=== PATIENT | male | born 1950 | race Caucasian/White ===

== ENCOUNTER 2017-12-13 20:36 | Emergency (ER) | payer OTHER ==
[2017-12-13 21:23] LABS: BASO # 0.1 10^3/uL (0.0-0.2); BASO % 1.3 % (0.0-1.0); EOS # 0.1 10^3/uL (0.0-0.50); EOS % 1.8 % (0.0-3.0); HEMATOCRIT 42.1 % (42.0-52.0); HEMOGLOBIN 14.2 g/dl (13.5-17.5); IMMATURE GRANULOCYTE % 0.4 % (0-3.0); LYMPH # 2.1 10^3/uL (1.5-4.5); LYMPH % 26.6 % (24.0-44.0); MEAN CORPUSCULAR HGB CONC 33.7 g/dl (32.0-36.5); MEAN CORPUSCULAR VOLUME 86.1 fl (80.0-96.0); MONO # 0.9 10^3/uL (0.0-0.8); MONO % 11.2 % (0.0-5.0); NEUTROPHILS # 4.6 10^3/uL (1.8-7.7); NEUTROPHILS % 58.7 % (36.0-66.0); PLATELET COUNT, AUTOMATED 244 10^3/uL (150-450); RED BLOOD COUNT 4.89 10^6/uL (4.30-6.10); WHITE BLOOD COUNT 7.8 10^3/uL (4.0-10.0)
[2017-12-13 21:57] LABS: ALBUMIN 3.2 GM/DL (3.2-5.2); ALBUMIN/GLOBULIN RATIO 0.76 (1.00-1.93); ALKALINE PHOSPHATASE 64 U/L (45-117); ALT/SGPT 42 U/L (12-78); ANION GAP 10 MEQ/L (8-16); AST/SGOT 19 U/L (7-37); BILIRUBIN,DIRECT 0.1 MG/DL (0.0-0.2); BILIRUBIN,TOTAL 0.4 MG/DL (0.2-1.0); BLOOD UREA NITROGEN 12 MG/DL (7-18); CALCIUM LEVEL 8.7 MG/DL (8.8-10.2); CARBON DIOXIDE LEVEL 26 MEQ/L (21-32); CHLORIDE LEVEL 103 MEQ/L (98-107); CREATININE FOR GFR 1.07 MG/DL (0.70-1.30); GLOMERULAR FILTRATION RATE > 60.0 (>49); GLUCOSE, FASTING 264 MG/DL (70-100); POTASSIUM SERUM 3.9 MEQ/L (3.5-5.1); SODIUM LEVEL 139 MEQ/L (136-145); TOTAL PROTEIN 7.4 GM/DL (6.4-8.2)
[2017-12-13 22:08] LABS: INR 1.05; PROTHROMBIN TIME 13.8 SECONDS (12.1-14.4)
[2017-12-13 22:09] LABS: PARTIAL THROMBOPLASTIN TIME 33.2 SECONDS (25.4-37.6)
[2017-12-13 22:22] LABS: CPK CREATINE PHOSPHOKINASE 130 U/L (39-308); MB/CK RELATIVE INDEX 0.92 (< OR =4); TROPONIN I 0.48 NG/ML (< 0.10)
== END 2017-12-13 22:43 | disposition left against medical advice (07) ==
LOC: M ED 20:36
DX: R53.1 Weakness (principal); Z53.20 Procedure and treatment not carried out because of patient's decision for unspecified reasons
CPT/HCPCS: 71046

== ENCOUNTER 2017-12-17 11:39 | Inpatient (IN) | payer MEDICARE, OTHER ==
[2017-12-17 12:09] LABS: BASO # 0.1 10^3/uL (0.0-0.2); BASO % 0.8 % (0.0-1.0); EOS # 0.1 10^3/uL (0.0-0.50); EOS % 0.8 % (0.0-3.0); HEMOGLOBIN 14.4 g/dl (13.5-17.5); IMMATURE GRANULOCYTE % 0.5 % (0-3.0); LYMPH # 1.6 10^3/uL (1.5-4.5); LYMPH % 19.7 % (24.0-44.0); MEAN CORPUSCULAR HEMOGLOBIN 28.9 pg (27.0-33.0); MEAN CORPUSCULAR HGB CONC 33.5 g/dl (32.0-36.5); MEAN CORPUSCULAR VOLUME 86.3 fl (80.0-96.0); MONO # 0.9 10^3/uL (0.0-0.8); MONO % 10.4 % (0.0-5.0); NEUTROPHILS # 5.6 10^3/uL (1.8-7.7); NEUTROPHILS % 67.8 % (36.0-66.0); PLATELET COUNT, AUTOMATED 239 10^3/uL (150-450); RED BLOOD COUNT 4.98 10^6/uL (4.30-6.10); RED CELL DISTRIBUTION WIDTH 12.9 % (11.5-14.5); WHITE BLOOD COUNT 8.3 10^3/uL (4.0-10.0)
[2017-12-17 12:20] LABS: INR 1.05; PROTHROMBIN TIME 13.8 SECONDS (12.1-14.4)
[2017-12-17 12:39] LABS: BEDSIDE GLUCOSE 285 MG/DL (80-115)
[2017-12-17 13:11] LABS: ANION GAP 9 MEQ/L (8-16); BLOOD UREA NITROGEN 13 MG/DL (7-18); CALCIUM LEVEL 8.4 MG/DL (8.8-10.2); CARBON DIOXIDE LEVEL 25 MEQ/L (21-32); CHLORIDE LEVEL 102 MEQ/L (98-107); CPK CREATINE PHOSPHOKINASE 183 U/L (39-308); CREATININE FOR GFR 1.05 MG/DL (0.70-1.30); GLOMERULAR FILTRATION RATE > 60.0 (>49); GLUCOSE, FASTING 273 MG/DL (70-100); MB/CK RELATIVE INDEX 2.62 (< OR =4); POTASSIUM SERUM 4.2 MEQ/L (3.5-5.1); SODIUM LEVEL 136 MEQ/L (136-145); TROPONIN I 0.65 NG/ML (< 0.10)
[2017-12-17] MEDS: LABETALOL HCL 100 MG/20 ML VIAL IV ×2 (13:14)
[2017-12-17] MEDS: ASPIRIN 325 MG TAB PO ×2 (13:46)
[2017-12-17] MEDS: ATORVASTATIN 20 MG TAB PO ×2 (13:46)
[2017-12-17] MEDS ORDERED: GLUCOSE 4 GM CHEW TABLET PO ×2 (14:45)
[2017-12-17] MEDS ORDERED: hydrALAZINE INJ 20 MG/ML VIAL IV ×2 (14:45)
[2017-12-17] MEDS ORDERED: GLUCAGON FOR INJ 1 MG VIAL (J1610) SC ×2 (14:45)
[2017-12-17] MEDS ORDERED: DEXTROSE 50% 50 ML SYRINGE IV ×2 (14:45)
[2017-12-17 17:53] LABS: BEDSIDE GLUCOSE 175 MG/DL (80-115)
[2017-12-17] MEDS: HumaLOG INSULIN (NovoLOG) PER UNIT SC ×4 (17:55→21:00)
[2017-12-17 18:55] LABS: CPK CREATINE PHOSPHOKINASE 206 U/L (39-308); MB/CK RELATIVE INDEX 3.54 (< OR =4); TROPONIN I 1.79 NG/ML (< 0.10)
[2017-12-17] MEDS: CLOPIDOGREL 75 MG TAB PO ×2 (19:43)
[2017-12-17 21:25] LABS: BEDSIDE GLUCOSE 215 MG/DL (80-115)
[2017-12-17] MEDS: METOPROLOL TART 12.5 MG PER 1/2 TAB PO ×2 (21:31)
[2017-12-18 02:50] LABS: CPK CREATINE PHOSPHOKINASE 218 U/L (39-308); MB/CK RELATIVE INDEX 2.98 (< OR =4); TROPONIN I 4.45 NG/ML (< 0.10)
[2017-12-18 07:14] LABS: HEMATOCRIT 41.2 % (42.0-52.0); HEMOGLOBIN 13.7 g/dl (13.5-17.5); MEAN CORPUSCULAR HEMOGLOBIN 28.8 pg (27.0-33.0); MEAN CORPUSCULAR HGB CONC 33.3 g/dl (32.0-36.5); MEAN CORPUSCULAR VOLUME 86.7 fl (80.0-96.0); PLATELET COUNT, AUTOMATED 230 10^3/uL (150-450); RED BLOOD COUNT 4.75 10^6/uL (4.30-6.10); WHITE BLOOD COUNT 8.7 10^3/uL (4.0-10.0)
[2017-12-18 07:59] LABS: ANION GAP 9 MEQ/L (8-16); BLOOD UREA NITROGEN 9 MG/DL (7-18); CALCIUM LEVEL 8.6 MG/DL (8.8-10.2); CARBON DIOXIDE LEVEL 25 MEQ/L (21-32); CHLORIDE LEVEL 104 MEQ/L (98-107); CHOLESTEROL LEVEL 150 MG/DL (<200); CHOLESTEROL RISK RATIO 5.769 (<5); CPK CREATINE PHOSPHOKINASE 215 U/L (39-308); CREATININE FOR GFR 0.88 MG/DL (0.70-1.30); GLOMERULAR FILTRATION RATE > 60.0 (>49); GLUCOSE, FASTING 191 MG/DL (70-100); HDL CHOLESTEROL 26 MG/DL (>40); LDL CHOLESTEROL 92 MG/DL (<100); MAGNESIUM LEVEL 1.7 MG/DL (1.8-2.4); MB/CK RELATIVE INDEX 2.47 (< OR =4); NON-HDL-C 124 MG/DL; SODIUM LEVEL 138 MEQ/L (136-145); TRIGLYCERIDES LEVEL 161 MG/DL (<150)
[2017-12-18] MEDS: ATORVASTATIN 20 MG TAB PO ×2 (08:44)
[2017-12-18] MEDS: ASPIRIN 81 MG CHEW TABLET PO ×2 (08:44)
[2017-12-18] MEDS: HumaLOG INSULIN (NovoLOG) PER UNIT SC ×8 (08:45→20:34)
[2017-12-18] MEDS: CLOPIDOGREL 75 MG TAB PO ×2 (08:45)
[2017-12-18] MEDS: MAG SULF 1GM/100ML (MAG RUN) 1 GM in APPROPRIATE DILUENT 1 EA IV ×2 (08:45→11:03)
[2017-12-18] MEDS: METOPROLOL TART 12.5 MG PER 1/2 TAB PO ×2 (08:45)
[2017-12-18] MEDS ORDERED: ASPIRIN 325 MG TAB PO ×2 (09:00)
[2017-12-18 11:52] LABS: BEDSIDE GLUCOSE 289 MG/DL (80-115)
[2017-12-18] MEDS ORDERED: ACETAMINOPHEN TAB 650MG DOSE (2X325MG) PO ×2 (12:15)
[2017-12-18] MEDS: NORCO, ANEXSIA 5/325MG TABLET (HYDROcodone/ACETAMINOPHEN) PO ×4 (12:34→20:35)
[2017-12-18 16:18] LABS: CPK CREATINE PHOSPHOKINASE 185 U/L (39-308); MB/CK RELATIVE INDEX 1.84 (< OR =4)
[2017-12-18 17:26] LABS: BEDSIDE GLUCOSE 253 MG/DL (80-115)
[2017-12-18 20:24] LABS: BEDSIDE GLUCOSE 253 MG/DL (80-115)
[2017-12-18] MEDS: LISINOPRIL 5 MG TAB PO ×2 (20:33)
[2017-12-18] MEDS: METOPROLOL SUCC *XL* 25MG TAB (TopROL *XL*) PO ×2 (20:34)
[2017-12-19] MEDS: SLF 3 ML SYR IV ×4 (05:06→07:42)
[2017-12-19 05:41] LABS: HEMATOCRIT 40.5 % (42.0-52.0); HEMOGLOBIN 13.3 g/dl (13.5-17.5); MEAN CORPUSCULAR HEMOGLOBIN 28.8 pg (27.0-33.0); MEAN CORPUSCULAR HGB CONC 32.8 g/dl (32.0-36.5); MEAN CORPUSCULAR VOLUME 87.7 fl (80.0-96.0); PLATELET COUNT, AUTOMATED 223 10^3/uL (150-450); RED BLOOD COUNT 4.62 10^6/uL (4.30-6.10); RED CELL DISTRIBUTION WIDTH 12.9 % (11.5-14.5); WHITE BLOOD COUNT 8.9 10^3/uL (4.0-10.0)
[2017-12-19 06:23] LABS: ANION GAP 7 MEQ/L (8-16); BLOOD UREA NITROGEN 10 MG/DL (7-18); CALCIUM LEVEL 8.1 MG/DL (8.8-10.2); CARBON DIOXIDE LEVEL 27 MEQ/L (21-32); CHLORIDE LEVEL 103 MEQ/L (98-107); CREATININE FOR GFR 0.88 MG/DL (0.70-1.30); GLOMERULAR FILTRATION RATE > 60.0 (>49); GLUCOSE, FASTING 226 MG/DL (70-100); MAGNESIUM LEVEL 1.6 MG/DL (1.8-2.4); SODIUM LEVEL 137 MEQ/L (136-145)
[2017-12-19] MEDS: MAG SULF 1GM/100ML (MAG RUN) 1 GM in APPROPRIATE DILUENT 1 EA IV ×2 (07:41→09:08)
[2017-12-19] MEDS: HumaLOG INSULIN (NovoLOG) PER UNIT SC ×2 (07:41)
[2017-12-19] MEDS: CLOPIDOGREL 75 MG TAB PO ×2 (07:42)
[2017-12-19] MEDS: ATORVASTATIN 20 MG TAB PO ×2 (07:42)
[2017-12-19] MEDS: ASPIRIN 81 MG CHEW TABLET PO ×2 (07:42)
== END 2017-12-19 11:07 | disposition left against medical advice (07) | DRG 64 ==
LOC: M ED 11:39 → M ED INP 14:36 → M PCU 18:01
DX: I63.9 Cerebral infarction, unspecified (principal); I21.4 Non-ST elevation (NSTEMI) myocardial infarction; E11.9 Type 2 diabetes mellitus without complications; M25.522 Pain in left elbow; E66.01 Morbid (severe) obesity due to excess calories; R79.89 Other specified abnormal findings of blood chemistry; I10 Essential (primary) hypertension; Z90.49 Acquired absence of other specified parts of digestive tract; Z87.891 Personal history of nicotine dependence; Z79.82 Long term (current) use of aspirin; Z79.84 Long term (current) use of oral hypoglycemic drugs

== ENCOUNTER → 2017-12-26 | Outpatient (CLI) | payer OTHER | LOC: M RAD 10:09 | DX: R22.32 Localized swelling, mass and lump, left upper limb (principal) | CPT/HCPCS: 93971 ==

== ENCOUNTER → 2018-01-11 | Outpatient (REF) | payer OTHER | LOC: M SFHCPLAZ 11:41 | DX: E11.9 Type 2 diabetes mellitus without complications (principal); Z53.8 Procedure and treatment not carried out for other reasons ==

== ENCOUNTER → 2018-01-19 | Outpatient (CLI) | payer OTHER | LOC: M RAD 08:50 | DX: M79.642 Pain in left hand (principal); M25.512 Pain in left shoulder; M79.89 Other specified soft tissue disorders | CPT/HCPCS: 73030 ==

== ENCOUNTER → 2018-01-25 | Outpatient (REF) | payer OTHER | LOC: M SFHCPLAZ 09:45 | DX: Z53.9 Procedure and treatment not carried out, unspecified reason (principal) ==

== ENCOUNTER → 2018-01-30 | Outpatient (CLI) | payer OTHER ==
[~2018-01-30] MED LIST: PROHANCE 279.3MG/ML 15ML VIAL (A9576) As Ordered; PROHANCE 279.3MG/ML 5ML VIAL (A9576) As Ordered
== END ==
LOC: M RAD 17:34
DX: R42 Dizziness and giddiness (principal); I67.2 Cerebral atherosclerosis; I63.59 Cerebral infarction due to unspecified occlusion or stenosis of other cerebral artery
CPT/HCPCS: A9576